=== PATIENT | female | born 1935 | race Caucasian/White ===

== ENCOUNTER 2024-09-12 11:52 | Emergency (ER) | payer MEDICARE, MEDICAID ==
[~2024-09-12] VITALS: Ht 157.5 cm; Wt 55.0 kg
[2024-09-12 11:54] VITALS: O2SAT 99
[2024-09-12 12:48] LABS: BASOPHILS % 0.2 % (0.0-2.0); EOSINOPHILS % 0.4 % (0.0-5.0); HEMATOCRIT. 33.8 % (36.0-48.0); HEMOGLOBIN. 11.4 g/dL (12.0-16.0); LYMPHOCYTES % 8.8 % (20.0-50.0); MEAN PLATELET VOLUME 10.0 fl (7.4-10.4); MONOCYTES % 4.1 % (2.0-8.0); NEUTROPHILS % 86.5 % (40.0-76.0); PLATELET 212 x1000/uL (130-400); RED BLOOD CELL COUNT 3.52 mill/uL (4.2-5.4); RED CELL DISTRIBUTION WIDTH 15.3 % (11.6-14.6)
[2024-09-12 13:00] LABS: CREATININE 1.6 mg/dL (0.6-1.0); UREA NITROGEN BLOOD 35 mg/dL (9-23)
[2024-09-12 13:01] LABS: ASPARTATE AMINOTRANSFERASE 26 IU/L (<34)
[2024-09-12 13:02] LABS: BILIRUBIN TOTAL 0.5 mg/dL (0.1-1.0); PROTEIN TOTAL 7.1 g/dL (6.0-8.3)
[2024-09-12] MEDS ORDERED: CEFP100T8 MT (20:44)
[2024-09-12 22:08] VITALS: TEMP 36.7
[2024-09-12 22:12] LABS: CLARITY URINE CLOUDY (CLEAR); COLOR URINE YELLOW (YELLOW); GLUCOSE URINE 3+ (NEGATIVE); KETONES URINE NEGATIVE (NEGATIVE); PH URINE 5.0 (4.5-8.0); PROTEIN URINE 2+ (NEGATIVE); SPECIFIC GRAVITY URINE 1.015 (1.005-1.030)
[2024-09-12 22:13] LABS: LEUKOCYTE ESTERASE URINE 3+ (NEGATIVE); NITRITE URINE NEGATIVE (NEGATIVE); OCCULT BLOOD URINE 3+ (NEGATIVE); UROBILINOGEN URINE 0.2 E.U./dL (0.2-1.0)
[2024-09-12 22:19] LABS: RBC URINE 25-50 /hpf (0-2); WBC URINE TNTC /hpf (0-2)
[2024-09-12 22:20] LABS: BACTERIA URINE 3+; SQUAMOUS EPITHELIAL CELL URINE 1+ /lpf (RARE/1+)
[2024-09-13] VITALS: BP 122/32; PULSE 61; RESP 19; O2SAT 96
== END 2024-09-13 01:15 | disposition home or self-care (01) ==
LOC: ER 11:52
DX: M79.604 Pain in right leg (principal); R30.0 Dysuria
CPT/HCPCS: 36415; 51702; 72170; 73552; 73590; 73610; 80053; 81003; 85025; 93971; 99285